=== PATIENT | female | born 1960 | race Caucasian/White ===

== ENCOUNTER 2018-10-20 02:44 | Emergency (ER) | payer BC ==
[2018-10-20] MEDS ORDERED: Tamsulosin 0.4 MG Cap.ER PO ONE (03:03)
[2018-10-20] MEDS ORDERED: Ketorolac 30 MG/ML SDV IVPUSH STA (03:03)
[2018-10-20] MEDS ORDERED: HYDROmorphone 1 MG/ML Syringe IVPUSH ONE ×2 (03:03→05:29)
[2018-10-20] MEDS ORDERED: Ondansetron 4 MG/2 ML SDV IVPUSH ONE ×2 (03:03→05:31)
[2018-10-20] MEDS ORDERED: Sodium Chloride 0.9% 1,000 ML IV SCH (03:15)
--- NOTE | 2018-10-20 03:36 | EDM.PDOC ---
ED HPI GENERAL MEDICAL PROBLEM - General Chief Complaint: Flank Pain Stated Complaint: BACK PAIN Time Seen by Provider: 10/20/18 03:27 Source of Information: Reports: Patient, Family (), RN Notes Reviewed History Limitations: Reports: No Limitations - History of Present Illness INITIAL COMMENTS - FREE TEXT/NARRATIVE: There was a delay in seeing this patient, as I was dealing with a pediatric patient with an upper GI bleed. Based on her history provided by the RN, however , I suspected that she has a ureterolith and ordered a urinalysis, CT scan of the abdomen and pelvis, urine strain, Dilaudid, Flomax, IV fluid, Toradol, and Zofran. The patient states that she was woken around 00:15 with sudden onset right flank pain that sometimes radiates around to the right side of her abdomen. It is sharp in character. She has had nausea and 5 episodes of emesis. She believes that there is some visible blood in her urine, although she denies urinary symptoms such as dysuria or urinary frequency. No constipation or diarrhea. No recent fever. No prior similar symptoms. The patient states that she tried a heating pad, without relief. She has not found a comfortable position. The patient's PCP is Dr. Andre Han. Right Upper Flank Pain Score (Numeric/FACES): 10 - Related Data Allergies Allergy/AdvReac Type Severity Reaction Status Date / Time amoxicillin Allergy Cannot Verified 10/20/18 02:50 Remember morphine Allergy Cannot Verified 10/20/18 02:50 Remember Home Meds: Home Meds Acetaminophen/oxyCODONE [Percocet 325-5 MG] 1 - 2 tab PO Q6H PRN #30 tab [Rx] Ondansetron [Zofran ODT] 1 tab PO Q8H PRN #20 tab.dis 10/20/18 [Rx] Tamsulosin HCl [Flomax] 1 cap PO QAM PRN #5 cap.er.24h 10/20/18 [Rx] Past Medical History HEENT History: Reports: Impaired Vision Other HEENT History: Wears glasses Gastrointestinal History: Reports: GERD, PUD Genitourinary History: Reports: Urinary Incontinence (stress incontinence) 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 (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, due to a bicornuate uterus) Musculoskeletal History: Reports: Back Pain, Chronic (DDD), Osteoarthritis Endocrine/Metabolic History: Reports: Obesity/BMI 30+ - Past Surgical History HEENT Surgical History: Reports: Oral Surgery (1 wisdom tooth extracted) GI Surgical History: Reports: EGD Female Surgical History: Reports: D&C (x 3 or 4), Other (See Below) ( Attempted repair of bicornuate uterus x 2) Neurological Surgical History: Reports: Lumbar Spine (microdiscectomy x 1, laminectomy x 1) Social & Family History - Tobacco Use Smoking Status *Q: Never Smoker - Alcohol Use Alcohol Use History: No - Recreational Drug Use Recreational Drug Use: No - Living Situation & Occupation Living situation: Reports: , with Spouse Occupation: Unemployed ED ROS GENERAL - Review of Systems Review Of Systems: ROS reveals no pertinent complaints other than HPI. ED EXAM, RENAL/ - Physical Exam Exam: See Below Exam Limited By: No Limitations General Appearance: Alert, WD/WN, Mild Distress (appears uncomfortable) Eye Exam: Bilateral Eye: EOMI, Normal Inspection Ears: Normal External Exam, Hearing Grossly Normal Nose: Normal Inspection Throat/Mouth: Normal Inspection, Normal Lips, Normal Voice, No Airway Compromise Head: Atraumatic, Normocephalic Neck: Normal Inspection, Full Range of Motion Respiratory/Chest: No Respiratory Distress, Lungs Clear, Normal Breath Sounds, No Accessory Muscle Use Cardiovascular: Normal Peripheral Pulses, Regular Rate, Rhythm, No Gallop, No JVD, No Murmur, No Rub GI/Abdominal: Normal Bowel Sounds, Soft, No Organomegaly, No Distention, No Abnormal Bruit, No Mass, Tender (Mild discomfort to palpation of the right abdomen only), Other (Obese) (Female) Exam: Deferred Rectal (Female) Exam: Deferred Back Exam: Normal Inspection, Full Range of Motion, CVA Tenderness (R). No: CVA Tenderness (L) Extremities: Normal Inspection, Normal Range of Motion, Normal Capillary Refill Neurological: Alert, Oriented, Normal Cognition, No Motor/Sensory Deficits Psychiatric: Normal Affect Skin Exam: Warm, Dry, Intact, Normal Color, No Rash Course - Vital Signs Last Recorded V/S: Last Vital Signs Temp 36.4 C 10/20/18 02:50 Pulse 81 10/20/18 02:50 Resp 18 10/20/18 02:50 BP 141/76 H 10/20/18 02:50 Pulse Ox 100 10/20/18 02:50 - Orders/Labs/Meds Orders: Active Orders 24 hr Category Date Time Status Strain Urine [RC] ASDIRECTED Care 10/20/18 03:03 Active Abdomen Pelvis wo Cont [CT] Stat Exams 10/20/18 03:03 Taken Sodium Chloride 0.9% [Normal Saline] 1,000 ml Med 10/20/18 03:15 Active IV ASDIRECTED Medication Orders Sodium Chloride (Normal Saline) 1,000 mls @ 150 mls/hr IV ASDIRECTED MONIQUE Last Admin: 10/20/18 03:15 Dose: 150 mls/hr Labs: Laboratory Tests 10/20/18 Range/Units 04:03 Urine Color Iris H (Yellow) Urine Appearance Cloudy H (Clear) Urine pH 5.5 (5.0-8.0) Ur Specific Brawley > or = 1.030 (1.005-1.030) Urine Protein 2+ H (Negative) Urine Glucose (UA) Negative (Negative) Urine Ketones Trace H (Negative) Urine Occult Blood 3+ H (Negative) Urine Nitrite Negative (Negative) Urine Bilirubin Negative (Negative) Urine Urobilinogen 0.2 (0.2-1.0) Ur Leukocyte Esterase Negative (Negative) Urine RBC Too numerous to cnt H (0-5) /hpf Urine WBC 0-5 (0-5) /hpf Ur Epithelial Cells 0-5 (0-5) /hpf Urine Bacteria Few (FEW) /hpf Hyaline Casts 0-5 (0-5) /lpf Urine Mucus Few (FEW) /hpf Meds: Medications Generic Name Dose Route Start Last Admin Trade Name Freq PRN Reason Stop Dose Admin Sodium Chloride 1,000 mls @ 150 mls/hr 10/20/18 03:15 10/20/18 03:15 Normal Saline IV 150 mls/hr ASDIRECTED MONIQUE Administration Discontinued Medications Generic Name Dose Route Start Last Admin Trade Name Freq PRN Reason Stop Dose Admin Hydromorphone HCl 1 mg 10/20/18 03:03 10/20/18 03:13 Dilaudid IVPUSH 10/20/18 03:04 1 mg ONETIME ONE Administration Ketorolac Tromethamine 30 mg 10/20/18 03:03 10/20/18 03:11 Toradol IVPUSH 10/20/18 03:04 30 mg ONETIME STA Administration Ondansetron HCl 4 mg 10/20/18 03:03 10/20/18 03:08 Zofran IVPUSH 10/20/18 03:04 4 mg ONETIME ONE Administration Tamsulosin HCl 0.4 mg 10/20/18 03:03 10/20/18 03:15 Flomax PO 10/20/18 03:04 0.4 mg ONETIME ONE Administration - Re-Assessments/Exams Free Text/Narrative Re-Assessment/Exam: 10/20/18 03:39 CT of the abdomen and pelvis without contrast is read by Mando as: 1. Hydronephrosis of the right kidney as well as hydroureter secondary to a 5 mm stone in the proximal right ureter. The stone lies approximately 5 cm distal to the right ureteral pelvic junction 2. Bilateral nonobstructing renal calculi measuring 1-2 mm each 3. Small oval hernia containing mesenteric fat 4. Normal appendix right lower quadrant 10/20/18 03:48 CT results discussed with the patient and her . Given the size and location, the patient will not likely pass this stone on her own, at least not soon. I will therefore refer her to Dr. Sierra. The patient has not yet provided a urine sample, and I want to make sure that she does not have a UTI before discharging her home. Provided she does not, though, I will discharge her home with prescriptions for Percocet, Flomax, and Zofran. I would like her to remain adequately hydrated and strain all of her urine. 10/20/18 05:21 The patient's urinalysis shows considerable amount of blood, but no suggestion of a UTI. I will discharge her home, as above. Departure - Departure Time of Disposition: 05:21 Disposition: Home, Self-Care 01 Condition: Fair Clinical Impression: Ureterolithiasis - Discharge Information *PRESCRIPTION DRUG MONITORING PROGRAM REVIEWED*: Not Applicable *COPY OF PRESCRIPTION DRUG MONITORING REPORT IN PATIENT ZACK: Not Applicable Prescriptions: Acetaminophen/oxyCODONE [Percocet 325-5 MG] 1 - 2 tab PO Q6H PRN #30 tab PRN Reason: Pain (Severe 7-10) Ondansetron [Zofran ODT] 1 tab PO Q8H PRN #20 tab.dis PRN Reason: Nausea/Vomiting Tamsulosin HCl [Flomax] 1 cap PO QAM PRN #5 cap.er.24h PRN Reason: Pain Referrals: Andre Han MD [Primary Care Provider] - Chago Sierra MD [Ordering Only Provider] - Forms: ED Department Discharge Additional Instructions: You were seen in the emergency room for right flank pain radiating to your right abdomen. Workup in the ER included a urinalysis and a CT scan of your abdomen and pelvis without contrast. The CT scan confirmed that you have a 5 mm stone in your proximal right ureter. Your urinalysis did not show any signs of a urinary tract infection. Based on the size and location of the stone, you will not likely pass this stone readily or soon. Take 1 to 2 tablets of the narcotic pain reliever Percocet up to every 6 hours, as needed for pain. If you take Percocet, do not drive for 10 hours afterwards. Percocet will likely cause constipation, so consider taking a stool softener. Be aware that Percocet has Tylenol in it, so do not also take Tylenol. Take one tablet of the anti-spasm medicine Flomax every morning, starting tomorrow morning, 10/21/2018. Dissolve one tablet of the anti-nausea medicine Zofran on your tongue up to every 8 hours, as needed for nausea/vomiting. Stay adequately hydrated, and strain all of your urine. If you capture the stone , take it to your doctor for analysis. Follow-up with the Urologist Dr. Chago Sierra in [place] at the next available appointment. If any other problems, please do not hesitate to return to the ER. - My Orders Last 24 Hours: My Active Orders 10/20/18 03:03 Strain Urine [RC] ASDIRECTED Abdomen Pelvis wo Cont [CT] Stat 10/20/18 03:15 Sodium Chloride 0.9% [Normal Saline] 1,000 ml IV ASDIRECTED - Assessment/Plan Last 24 Hours: My Active Orders 10/20/18 03:03 Strain Urine [RC] ASDIRECTED Abdomen Pelvis wo Cont [CT] Stat 10/20/18 03:15 Sodium Chloride 0.9% [Normal Saline] 1,000 ml IV ASDIRECTED
--- NOTE | 2018-10-20 20:31 | CT ---
CT abdomen and pelvis Technique: Multiple axial sections were obtained from slightly below the dome of the diaphragm inferiorly to the pubic symphysis. Intravenous and oral contrast was not utilized. Study has been performed as a ureteral stone protocol. Findings: Mildly prominent proximal right ureter is seen. This finding is caused by an obstructing stone measuring approximately 5 mm within the proximal right ureter. Small nonobstructing stone is noted within each kidney. Visualized lung bases show nothing acute. Noncontrast appearance of the visualized liver and spleen appears within normal limits. Gallbladder contains no calcified gallstones. Pancreas is normal. Aorta shows no aneurysm with mild atherosclerotic calcification. Fat-containing umbilical hernia is noted. No pelvic mass or adenopathy is seen. Scattered calcifications are noted within the uterus which are felt to be incidental. Minimal fibroid change is seen within the uterus. No free fluid or inflammatory change is seen. Appendix is seen and is normal in size. Bone window settings show scattered degenerative change within the spine. Impression: 1. Proximal right obstructing ureteral stone measuring 5 mm. Small nonobstructing stone within each kidney. 2. Other incidental findings as noted above. Diagnostic code #3 Agree with preliminary report issued by [employer] ([facility] preliminary report dictated on 10/20/18, 4:36 AM Central Time)
== END 2018-10-20 05:55 | disposition home or self-care (01) ==
LOC: JD.ED 02:44
DX: N20.2 Calculus of kidney with calculus of ureter (principal); K21.9 Gastro-esophageal reflux disease without esophagitis; Z88.1 Allergy status to other antibiotic agents; Z88.5 Allergy status to narcotic agent
CPT/HCPCS: 74176; 81001; 96361; 96374; 96375; 96376; 99284; A9270; J1170; J1885; J2405; J7040

== ENCOUNTER 2018-10-20 19:33 | Emergency (ER) | payer BC ==
[2018-10-20] MEDS ORDERED: HYDROmorphone 1 MG/ML Syringe IVPUSH ONE (20:03)
[2018-10-20] MEDS ORDERED: Ondansetron 4 MG/2 ML SDV IVPUSH ONE (20:03)
[2018-10-20] MEDS ORDERED: Sodium Chloride 0.9% 10 ML Syringe FLUSH PRN (20:03)
[2018-10-20] MEDS ORDERED: Sodium Chloride 0.9% 1,000 ML IV SCH (20:15)
[2018-10-20] MEDS ORDERED: Metoclopramide 10 MG/2 ML SDV IVPUSH ONE (20:30)
--- NOTE | 2018-10-20 20:33 | EDM.PDOC ---
ED HPI GENERAL MEDICAL PROBLEM - General Chief Complaint: Genitourinary Problem Stated Complaint: ABDOMINAL PAIN AND UNABLE TO TAKE MEDS Time Seen by Provider: 10/20/18 19:58 Source of Information: Reports: Patient, RN Notes Reviewed - History of Present Illness INITIAL COMMENTS - FREE TEXT/NARRATIVE: 58 year old female returns with severe flank pain now radiating to R groin. Had onset of R back pain about 18 hours ago radiating to R flank, CT early this past AM showed 5 mm stone. She has had worsening pain this afternoon, early evening with pain now radiating to R groin, has had nausea and vomiting, unable to take or keep percocet pain medication down. Also worried about getting dehydrated. Right Lower Abdomen Pain Score (Numeric/FACES): 10 - Related Data Allergies Allergy/AdvReac Type Severity Reaction Status Date / Time amoxicillin Allergy Cannot Verified 10/20/18 19:59 Remember morphine Allergy Cannot Verified 10/20/18 19:59 Remember Home Meds: Home Meds Acetaminophen/oxyCODONE [Percocet 325-5 MG] 1 - 2 tab PO Q6H PRN #30 tab [Rx] Ondansetron [Zofran ODT] 1 tab PO Q8H PRN #20 tab.dis 10/20/18 [Rx] Tamsulosin HCl [Flomax] 1 cap PO QAM PRN #5 cap.er.24h 10/20/18 [Rx] Past Medical History HEENT History: Reports: Impaired Vision Other HEENT History: Wears glasses Gastrointestinal History: Reports: GERD, PUD Genitourinary History: Reports: Renal Calculus, Urinary Incontinence 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 Musculoskeletal History: Reports: Back Pain, Chronic, Osteoarthritis Endocrine/Metabolic History: Reports: Obesity/BMI 30+ - Past Surgical History HEENT Surgical History: Reports: Oral Surgery GI Surgical History: Reports: EGD Female Surgical History: Reports: D&C, Other (See Below) Neurological Surgical History: Reports: Lumbar Spine Social & Family History - Living Situation & Occupation Living situation: Reports: , with Spouse Occupation: Unemployed ED ROS GENERAL - Review of Systems Review Of Systems: See Below Constitutional: Denies: Fever, Chills, Diaphoresis HEENT: Reports: No Symptoms Respiratory: Denies: Shortness of Breath Cardiovascular: Denies: Chest Pain GI/Abdominal: Reports: Abdominal Pain, Nausea, Vomiting : Denies: Hematuria Musculoskeletal: Reports: Back Pain Skin: Reports: No Symptoms Neurological: Reports: No Symptoms ED EXAM, RENAL/ - Physical Exam Exam: See Below General Appearance: Alert, Severe Distress Throat/Mouth: Normal Inspection Head: Atraumatic. No: Facial Swelling Neck: Supple, Full Range of Motion Respiratory/Chest: No Respiratory Distress, Lungs Clear, Normal Breath Sounds Cardiovascular: Regular Rate, Rhythm GI/Abdominal: Tender (mild tenderness R flank and R lower abd) Back Exam: CVA Tenderness (R) Extremities: Normal Inspection Neurological: Alert, No Motor/Sensory Deficits Skin Exam: Warm, Dry, Normal Color Course - Vital Signs Last Recorded V/S: Last Vital Signs Temp 98.3 F 10/20/18 19:51 Pulse 86 10/20/18 19:51 Resp 20 10/20/18 19:51 BP 145/94 H 10/20/18 19:51 Pulse Ox 100 10/20/18 19:51 - Orders/Labs/Meds Orders: Active Orders 24 hr Category Date Time Status Peripheral IV Care [RC] . DIRECTED Care 10/20/18 20:04 Active Sodium Chloride 0.9% [Normal Saline] 1,000 ml Med 10/20/18 20:15 Active IV ONETIME Sodium Chloride 0.9% [Saline Flush] Med 10/20/18 20:03 Active 10 ml FLUSH ASDIRECTED PRN Peripheral IV Insertion Adult [OM.PC] Stat Oth 10/20/18 20:03 Ordered Medication Orders Sodium Chloride (Normal Saline) 1,000 mls @ 999 mls/hr IV ONETIME MONIQUE Last Admin: 10/20/18 20:14 Dose: 999 mls/hr Sodium Chloride (Saline Flush) 10 ml FLUSH ASDIRECTED PRN PRN Reason: Keep Vein Open Last Admin: 10/20/18 20:15 Dose: 10 ml Meds: Medications Generic Name Dose Route Start Last Admin Trade Name Freq PRN Reason Stop Dose Admin Sodium Chloride 1,000 mls @ 999 mls/hr 10/20/18 20:15 10/20/18 20:14 Normal Saline IV 999 mls/hr ONETIME MONIQUE Administration Sodium Chloride 10 ml 10/20/18 20:03 10/20/18 20:15 Saline Flush FLUSH 10 ml ASDIRECTED PRN Administration Keep Vein Open Discontinued Medications Generic Name Dose Route Start Last Admin Trade Name Eduardo PRN Reason Stop Dose Admin Hydromorphone HCl 1 mg 10/20/18 20:03 10/20/18 20:11 Dilaudid IVPUSH 10/20/18 20:04 1 mg ONETIME ONE Administration Metoclopramide HCl 5 mg 10/20/18 20:30 10/20/18 20:37 Reglan IVPUSH 10/20/18 20:31 5 mg ONETIME ONE Administration Ondansetron HCl 4 mg 10/20/18 20:03 10/20/18 20:11 Zofran IVPUSH 10/20/18 20:04 4 mg ONETIME ONE Administration - Re-Assessments/Exams Free Text/Narrative Re-Assessment/Exam: 10/20/18 21:32 feeling much better after Dilaudid 1 mgt IV, zofran and reglan IV. Her stone has been traveling with pain now radiating strongly to R groin. Have discussed with patient and that at 5 mm it may or may not pass but need to give it some time and chance to do so. Discharge instr. as documented. Departure - Departure Time of Disposition: 21:33 Disposition: Home, Self-Care 01 Condition: Fair Clinical Impression: Kidney stone, Ureter colic - Discharge Information Referrals: Andre Han MD [Primary Care Provider] - Forms: ED Department Discharge Additional Instructions: Clear liquids and bland diet as tolerated, you have been given 1 L IV fluid while here in the ED, IV Zofran, Reglan and Dilaudid. Continue the Zofran ODT previously prescribed if needed for further nausea or vomiting. Continue to strain urine to watch for stone. Percocet as needed for further discomfort. If you have not passed the stone by mid morning tomorrow call your provider, ask for a referral to see Urology in [place] next available appointment. Return to the ED as needed if symptoms worsening in any way. - My Orders Last 24 Hours: My Active Orders 10/20/18 20:03 Sodium Chloride 0.9% [Saline Flush] 10 ml FLUSH ASDIRECTED PRN Peripheral IV Insertion Adult [OM.PC] Stat 10/20/18 20:04 Peripheral IV Care [RC] . DIRECTED 10/20/18 20:15 Sodium Chloride 0.9% [Normal Saline] 1,000 ml IV ONETIME - Assessment/Plan Last 24 Hours: My Active Orders 10/20/18 20:03 Sodium Chloride 0.9% [Saline Flush] 10 ml FLUSH ASDIRECTED PRN Peripheral IV Insertion Adult [OM.PC] Stat 10/20/18 20:04 Peripheral IV Care [RC] . DIRECTED 10/20/18 20:15 Sodium Chloride 0.9% [Normal Saline] 1,000 ml IV ONETIME
== END 2018-10-20 21:52 | disposition home or self-care (01) ==
LOC: JD.ED 19:33
DX: N20.0 Calculus of kidney (principal); E66.9 Obesity, unspecified; Z88.1 Allergy status to other antibiotic agents; Z88.5 Allergy status to narcotic agent
CPT/HCPCS: 96361; 96374; 96375; 99283; J1170; J2405; J2765; J7040

== ENCOUNTER 2022-06-27 22:16 | Emergency (ER) | payer BC, OTHER ==
[2022-06-27] MEDS ORDERED: Ondansetron 4 MG/2 ML SDV ONE (22:44)
[2022-06-27] MEDS ORDERED: Sodium Chloride 0.9% 10 ML Syringe FLUSH PRN (22:49)
[2022-06-27] MEDS ORDERED: Ondansetron 4 MG/2 ML SDV IVPUSH ONE (22:49)
[2022-06-27] MEDS ORDERED: Sodium Chloride 0.9% 1,000 ML IV SCH (23:00)
[2022-06-27] MEDS ORDERED: fentaNYL 100 MCG/2 ML SDV IVPUSH ONE (23:03)
[2022-06-27] MEDS ORDERED: HYDROmorphone 0.5 MG/0.5 ML Syringe IVPUSH ONE (23:46)
[2022-06-27] MEDS ORDERED: HYDROmorphone 1 MG/ML Syringe ONE (23:51)
[2022-06-28] MEDS ORDERED: HYDROmorphone 0.5 MG/0.5 ML Syringe IVPUSH ONE ×2 (00:29→01:39)
[2022-06-28] MEDS ORDERED: Lactated Ringers 1,000 ML IV SCH (01:45)
[2022-06-28] MEDS ORDERED: Cefdinir 300 MG Cap PO ONE (01:50)
[2022-06-28] MEDS ORDERED: Tamsulosin 0.4 MG Cap.ER PO ONE (01:50)
[2022-06-28] MEDS ORDERED: Ondansetron 4 MG/2 ML SDV ONE (02:07)
[2022-06-28] MEDS ORDERED: Acetaminophen/HYDROcodone 325-5 MG Tab ONE (03:24)
[2022-06-28] MEDS ORDERED: Acetaminophen/HYDROcodone 325-5 MG Tab PO ONE (03:49)
== END 2022-06-28 03:53 | disposition home or self-care (01) ==
LOC: JD.ED 22:16
DX: N20.0 Calculus of kidney (principal); E66.9 Obesity, unspecified; Z68.38 Body mass index [BMI] 38.0-38.9, adult; Z88.0 Allergy status to penicillin; Z88.6 Allergy status to analgesic agent; Z79.899 Other long term (current) drug therapy
CPT/HCPCS: 36415; 74176; 80053; 81001; 85025; 87086; 96361; 96374; 96375; 96376; 99284; A9270; J1170; J2405; J3010; J3490; J7030

== ENCOUNTER 2022-07-06 14:56 | Emergency (ER) | payer OTHER ==
[2022-07-06] MEDS ORDERED: Sodium Chloride 0.9% 10 ML Syringe FLUSH PRN (15:12)
[2022-07-06] MEDS ORDERED: HYDROmorphone 0.5 MG/0.5 ML Syringe IVPUSH ONE ×2 (15:31→16:25)
[2022-07-06] MEDS ORDERED: Ondansetron 4 MG/2 ML SDV IVPUSH ONE ×2 (15:31→16:25)
[2022-07-06 16:33] LABS: ESTIMATED GFR 64 mL/min (>60)
[2022-07-06] MEDS ORDERED: Sodium Chloride 0.9% 1,000 ML IV STA (16:50)
[2022-07-06] MEDS ORDERED: Ketorolac 30 MG/ML SDV IVPUSH ONE (16:55)
== END 2022-07-06 18:25 | disposition home or self-care (01) ==
LOC: JD.ED 14:56
DX: N20.0 Calculus of kidney (principal); E66.9 Obesity, unspecified; Z88.0 Allergy status to penicillin; Z88.5 Allergy status to narcotic agent
CPT/HCPCS: 36415; 80053; 81001; 85025; 86140; 96361; 96374; 96375; 96376; 99284; J1170; J1885; J2405; J3490; J7030

== ENCOUNTER 2024-09-09 21:11 | Inpatient (IN) | payer OTHER ==
[2024-09-09] MEDS ORDERED: Sodium Chloride 0.9% 10 ML Syringe FLUSH PRN (22:39)
[2024-09-09 22:45] LABS: BASOPHILS ABSOLUTE AUTO 0.1 K/mm3 (0.0-0.2); BASOPHILS PERCENT AUTO 0.4 % (0.0-1.0); HEMATOCRIT 46.8 % (37.0-47.0); IMMATURE GRAN ABSOLUTE AUTO 0.08 K/mm3 (0.00-0.05); IMMATURE GRAN PERCENT AUTO 0.6 % (0.0-0.4); LYMPHOCYTES ABSOLUTE AUTO 1.5 K/mm3 (1.0-4.8); LYMPHOCYTES PERCENT AUTO 11.6 % (24.0-44.0); MEAN CORPUSCULAR HEMOGLOBIN 30.5 pg (28.0-32.0); MEAN CORPUSCULAR HGB CONC 34.2 g/dl (32.0-36.0); MEAN CORPUSCULAR VOLUME 89.3 fl (83.0-99.0); MEAN PLATELET VOLUME 10.1 fl (9.4-12.3); MONOCYTES ABSOLUTE AUTO 0.8 K/mm3 (0.0-0.8); MONOCYTES PERCENT AUTO 5.9 % (0.0-8.0); NEUTROPHILS ABSOLUTE AUTO 10.7 K/mm3 (1.8-7.7); NEUTROPHILS PERCENT AUTO 81.5 % (41.0-71.0); PLATELET COUNT,PLT 235 K/mm3 (150-400); RED BLOOD CELL COUNT 5.24 M/mm3 (4.10-5.30); WHITE BLOOD CELL COUNT,WBC 13.06 K/mm3 (3.9-11.3)
[2024-09-09 22:55] LABS: ALBUMIN 4.1 g/dl (3.4-5.0); ANION GAP 18.3 (5-15); BILIRUBIN TOTAL 0.6 mg/dL (0.2-1.0); BUN/CREATININE RATIO 15.5 (14-18); CALCIUM 9.6 mg/dL (8.5-10.1); CREATININE 1.1 mg/dL (0.55-1.02); EST CRCL DRUG DOSING (CG) 41.4 mL/min; POTASSIUM,K 4.3 mEq/L (3.5-5.1); PROTEIN TOTAL,TP 8.2 g/dl (6.4-8.2)
[2024-09-09] MEDS: Sodium Chloride 0.9% 1,000 ML IV ONE (22:56)
[2024-09-09] MEDS: Ondansetron 4 MG/2 ML SDV IVPUSH ONE (22:57)
[2024-09-09] MEDS: fentaNYL 100 MCG/2 ML SDV IVPUSH ONE (22:57)
[2024-09-09] MEDS: Iopamidol 612 MG/ML 100 ML Bottle IVPUSH ONE (23:27)
[2024-09-10] MEDS: HYDROmorphone 1 MG/ML Syringe IVPUSH ONE
[2024-09-10] MEDS: Ondansetron 4 MG/2 ML SDV IVPUSH ONE
[2024-09-10] MEDS: fentaNYL 100 MCG/2 ML SDV IVPUSH ONE (00:58)
[2024-09-10] MEDS: Sodium Chloride 0.9% 1,000 ML IV SCH (03:12)
[2024-09-10] MEDS ORDERED: Ondansetron 4 MG/2 ML SDV IVPUSH PRN ×2 (06:00→10:09)
[2024-09-10 07:11] LABS: A/G RATIO 0.9 (1-2); ALBUMIN 3.1 g/dl (3.4-5.0); ANION GAP 13.8 (5-15); BILIRUBIN TOTAL 0.7 mg/dL (0.2-1.0); BUN/CREATININE RATIO 16.3 (14-18); CALCIUM 8.5 mg/dL (8.5-10.1); CREATININE 0.8 mg/dL (0.55-1.02); EST CRCL DRUG DOSING (CG) 54.31 mL/min; POTASSIUM,K 3.8 mEq/L (3.5-5.1); PROTEIN TOTAL,TP 6.6 g/dl (6.4-8.2)
[2024-09-10 07:37] LABS: BASOPHILS ABSOLUTE AUTO 0.1 K/mm3 (0.0-0.2); BASOPHILS PERCENT AUTO 0.5 % (0.0-1.0); EOSINOPHILS ABSOLUTE AUTO 0.1 K/mm3 (0.0-0.4); EOSINOPHILS PERCENT AUTO 0.6 % (0.0-6.0); HEMATOCRIT 41.9 % (37.0-47.0); IMMATURE GRAN ABSOLUTE AUTO 0.05 K/mm3 (0.00-0.05); IMMATURE GRAN PERCENT AUTO 0.5 % (0.0-0.4); LYMPHOCYTES ABSOLUTE AUTO 2.3 K/mm3 (1.0-4.8); LYMPHOCYTES PERCENT AUTO 20.7 % (24.0-44.0); MEAN CORPUSCULAR HEMOGLOBIN 30.5 pg (28.0-32.0); MEAN CORPUSCULAR HGB CONC 33.7 g/dl (32.0-36.0); MEAN CORPUSCULAR VOLUME 90.5 fl (83.0-99.0); MONOCYTES ABSOLUTE AUTO 1.2 K/mm3 (0.0-0.8); MONOCYTES PERCENT AUTO 11.4 % (0.0-8.0); NEUTROPHILS ABSOLUTE AUTO 7.2 K/mm3 (1.8-7.7); NEUTROPHILS PERCENT AUTO 66.3 % (41.0-71.0); PLATELET COUNT,PLT 195 K/mm3 (150-400); RED BLOOD CELL COUNT 4.63 M/mm3 (4.10-5.30); WHITE BLOOD CELL COUNT,WBC 10.86 K/mm3 (3.9-11.3)
[2024-09-10 07:43] LABS: HEMOGLOBIN 14.1 gm/dl (12.0-16.0)
[2024-09-10] MEDS ORDERED: Ketorolac 30 MG/ML SDV ONE (08:46)
[2024-09-10] MEDS ORDERED: Sugammadex Sodium 200 MG/2 ML VIAL IV ONE (08:46)
[2024-09-10] MEDS ORDERED: Propofol 200 MG/20 ML SDV ONE (08:46)
[2024-09-10] MEDS ORDERED: Ondansetron 4 MG/2 ML SDV ONE ×2 (08:46→11:34)
[2024-09-10] MEDS ORDERED: Lidocaine 2% 5 ML SDV ONE (08:46)
[2024-09-10] MEDS ORDERED: Dexamethasone 4 MG/ML 5 ML MDV ONE (08:46)
[2024-09-10] MEDS ORDERED: fentaNYL 100 MCG/2 ML SDV ONE (08:47)
[2024-09-10] MEDS: Acetaminophen 325 MG Tab PO PRN (09:25)
[2024-09-10] MEDS ORDERED: ceFAZolin 2 GM Vial ONE (09:45)
[2024-09-10] MEDS ORDERED: fentaNYL 100 MCG/2 ML SDV IVPUSH PRN (10:09)
[2024-09-10] MEDS ORDERED: HYDROmorphone 0.5 MG/0.5 ML Syringe IVPUSH PRN (10:09)
[2024-09-10] MEDS ORDERED: Rocuronium 50 MG/5 ML Vial ONE (11:00)
[2024-09-10] MEDS ORDERED: Lactated Ringers 1,000 ML ONE (11:39)
[2024-09-10] MEDS ORDERED: droPERidol 5 MG/2 ML SDV IVPUSH PRN (13:11)
[2024-09-10] MEDS: Bupivacaine 0.5% 30 ML SDV ONE (13:44)
[2024-09-10] MEDS: EPINEPHrine 1 MG/ML SDV ONE (13:45)
[2024-09-10] MEDS: Lidocaine 1% 30 ML SDV ONE (13:46)
[2024-09-10] MEDS: Acetaminophen 325 MG Tab PO SCH (14:21)
[2024-09-10] MEDS: oxyCODONE 5 MG Tab PO PRN (14:21)
[2024-09-11] MEDS: Enoxaparin 40 MG/0.4 ML Syringe SUBCUT SCH (08:18)
== END 2024-09-11 13:39 | disposition home or self-care (01) | DRG 354 ==
LOC: JD.ED 21:11 → JD.MS 09-10 02:17
PROVIDERS: ADMIT Surgery; ATTEND Surgery
PROC: 0WQF4ZZ Repair Abdominal Wall, Percutaneous Endoscopic Approach (ICD-10-PCS; principal; 2024-09-10 10:00)
DX: K43.6 Other and unspecified ventral hernia with obstruction, without gangrene (principal); Z68.41 Body mass index [BMI] 40.0-44.9, adult; H54.7 Unspecified visual loss; K21.9 Gastro-esophageal reflux disease without esophagitis; M19.90 Unspecified osteoarthritis, unspecified site; M54.9 Dorsalgia, unspecified; G89.29 Other chronic pain; E66.9 Obesity, unspecified; Z88.5 Allergy status to narcotic agent; Z88.0 Allergy status to penicillin; Z79.899 Other long term (current) drug therapy; Z98.890 Other specified postprocedural states
CPT/HCPCS: 36415; 74177; 74177-26; 80053; 83690; 83735; 85025; 93005; 96361; 96374; 96375; 96376; 99285-25; A9270-GY; J0171; J0665; J0690; J1100; J1171; J1650; J1885; J2405; J2704; J3010; J3490; J7030; J7120; Q9967